=== PATIENT | female | born 1930 | race Caucasian/White ===

== ENCOUNTER 2017-02-23 10:51 | Inpatient (IN) | payer OTHER ==
[~2017-02-23] VITALS: Ht 147.3 cm; Wt 47.7 kg
[~2017-02-23 10:51] MED LIST: AMLO2.5T29 PO; FURO-152 PO; LOSA100T2 PO; METO25XL PO; WARF1 PO
[2017-02-23 11:51] LABS: HEMATOCRIT 29.4 % (36-46); MEAN CORPUSCULAR HEMOGLOBIN 29.9 pg (26.0-34.0); MEAN CORPUSCULAR VOLUME 88 fL (80-100); PLATELET COUNT (AUTO) 129 K/uL (150-450); RED BLOOD CELL COUNT(AUTO) 3.34 MIL/uL (4.00-5.20); RED CELL DISTRIBUTION WIDTH 13.9 % (11.5-14.5)
[2017-02-23 12:06] LABS: APPEARANCE,URINE CLOUDY (CLEAR); BILIRUBIN,URINE PRELIM. POSITIVE (NEGATIVE); GLUCOSE, URINE (UA) NEGATIVE (NEGATIVE); KETONES,URINE TRACE mg/dL (NEGATIVE); LEUKOCYTE ESTERASE ,URINE SMALL (NEGATIVE); NITRATE,URINE POSITIVE (NEGATIVE); OCCULT BLOOD,URINE LARGE (NEGATIVE); PROTEIN,URINE SEE CONFIRM (NEGATIVE)
[2017-02-23 12:07] LABS: RBC,URINE Full Field /HPF (0-2); SULFOSALICYLIC ACID,URINE 3+ (Negative)
[2017-02-23 12:08] LABS: BACTERIA,URINE None Seen /HPF (None Seen)
[2017-02-23 12:19] LABS: CALCIUM, TOTAL 8.6 mg/dL (8.8-10.5); CREATININE 1.24 mg/dL (0.60-1.30)
[2017-02-23 12:26] LABS: ALBUMIN 2.4 g/dL (3.4-5.0); BILIRUBIN,TOTAL 4.9 mg/dL (0.1-1.0)
[2017-02-23 12:28] LABS: BAND NEUTROPHILS % (MANUAL) 4 % (1-5); LYMPHOCYTES % (MANUAL) 16 % (22-44); MONOCYTES % (MANUAL) 15 % (2-9); SEGMENTED NEUTROPHILS % 65 % (40-70)
[2017-02-23] MEDS ORDERED: NITROGLYCERIN 2% (1 GM=INCH) PACKET TP ONE (12:45)
[2017-02-23 13:07] LABS: PROTHROMBIN TIME 184.5 SEC (9.4-11.6)
[2017-02-23 13:11] LABS: INR 17.4 (0.9-1.1)
[2017-02-23] MEDS ORDERED: AZITHROMYCIN 500 MG/NS 250 ML IV ONE (13:15)
[2017-02-23] MEDS ORDERED: CefTRIAXone 1 GM/DEXTROSE 50 ML IV ONE (13:15)
[2017-02-23] MEDS ORDERED: FUROSEMIDE 40 MG/4 ML VIAL IVP ONE (13:15)
[2017-02-23] MEDS ORDERED: PHYTONADIONE 10 MG/1 ML AMP PO ONE (13:30)
[2017-02-23] MEDS ORDERED: 0.9% SODIUM CHLORIDE 10 ML SYRINGE IVP PRN (13:45)
[2017-02-23] MEDS ORDERED: ACETAMINOPHEN 325 MG TABLET PO PRN (13:45)
[2017-02-23 18:14] VITALS: BP 105/58
[2017-02-23 19:45] VITALS: BP 97/67
[2017-02-23] MEDS: METOPROLOL SUCCINATE 25 MG ER TABLET PO SCH (20:15)
[2017-02-23 21:26] LABS: PROTHROMBIN TIME 134.5 SEC (9.4-11.6)
[2017-02-23 21:35] LABS: INR 12.7 (0.9-1.1)
[2017-02-23 23:40] VITALS: BP 123/69
[2017-02-23] MEDS ORDERED: INFLUENZA VIRUS VACCINE QVS 2017-18 (3YR+)/PF 60 MCG/0.5 ML SYRINGE IM ONE (23:45)
[2017-02-24 04:23] VITALS: BP 100/73
[2017-02-24 07:02] LABS: INR 1.7 (0.9-1.1); PROTHROMBIN TIME 17.7 SEC (9.4-11.6)
[2017-02-24 07:10] LABS: HEMATOCRIT 25.5 % (36-46); HEMOGLOBIN 8.4 g/dL (12.0-16.0); MEAN CORPUSCULAR HEMOGLOBIN 29.3 pg (26.0-34.0); MEAN CORPUSCULAR VOLUME 89 fL (80-100); PLATELET COUNT (AUTO) 109 K/uL (150-450); RED BLOOD CELL COUNT(AUTO) 2.87 MIL/uL (4.00-5.20); RED CELL DISTRIBUTION WIDTH 13.9 % (11.5-14.5)
[2017-02-24 07:16] VITALS: BP 108/61
[2017-02-24 07:24] LABS: ALBUMIN 1.9 g/dL (3.4-5.0); BILIRUBIN,TOTAL 3.3 mg/dL (0.1-1.0); CALCIUM, TOTAL 8.1 mg/dL (8.8-10.5); CREATININE 1.28 mg/dL (0.60-1.30); MAGNESIUM 1.8 mg/dL (1.80-2.40); POTASSIUM 3.4 mmol/L (3.5-5.1); TOTAL PROTEIN, SERUM 5.8 g/dL (6.4-8.2)
[2017-02-24] MEDS: METOPROLOL SUCCINATE 25 MG ER TABLET PO SCH ×2 (09:00→19:05)
[2017-02-24 11:27] LABS: LYMPHOCYTES % (MANUAL) 13 % (22-44); MONOCYTES % (MANUAL) 19 % (2-9); SEGMENTED NEUTROPHILS % 68 % (40-70)
[2017-02-24 11:38] VITALS: BP 108/55
[2017-02-24] MEDS: LOSARTAN POTASSIUM 50 MG TABLET PO SCH (13:15)
[2017-02-24] MEDS ORDERED: METOPROLOL SUCCINATE 25 MG ER TABLET PO SCH (13:15)
[2017-02-24] MEDS ORDERED: POTASSIUM CHLORIDE 20 MEQ ER TABLET PO ONE (13:30)
[2017-02-24] MEDS: CefTRIAXone SODIUM 1 GM in DEXTROSE 5%-WATER 10 ML IV SCH (15:19)
[2017-02-24 16:31] VITALS: BP 109/59
[2017-02-24] MEDS ORDERED: WARFARIN SODIUM 1 MG TABLET PO SCH (17:00)
[2017-02-24 19:43] LABS: CALCIUM, TOTAL 8.1 mg/dL (8.8-10.5); CREATININE 1.41 mg/dL (0.60-1.30); MAGNESIUM 1.7 mg/dL (1.80-2.40); POTASSIUM 4.2 mmol/L (3.5-5.1)
[2017-02-24 19:54] VITALS: BP 110/64
[2017-02-25 00:01] VITALS: BP 119/71
[2017-02-25 05:09] VITALS: BP 101/60
[2017-02-25 07:05] LABS: INR 1.3 (0.9-1.1); PROTHROMBIN TIME 13.6 SEC (9.4-11.6)
[2017-02-25 07:14] LABS: HEMATOCRIT 23.9 % (36-46); MEAN CORPUSCULAR HGB CONC 33.5 G/dL (31.0-37.0); MEAN CORPUSCULAR VOLUME 87 fL (80-100); PLATELET COUNT (AUTO) 108 K/uL (150-450); RED BLOOD CELL COUNT(AUTO) 2.76 MIL/uL (4.00-5.20); RED CELL DISTRIBUTION WIDTH 14.1 % (11.5-14.5)
[2017-02-25 07:25] LABS: ALBUMIN 1.9 g/dL (3.4-5.0); BILIRUBIN,TOTAL 2.7 mg/dL (0.1-1.0); CREATININE 1.01 mg/dL (0.60-1.30); MAGNESIUM 1.9 mg/dL (1.80-2.40); POTASSIUM 4.3 mmol/L (3.5-5.1); TOTAL PROTEIN, SERUM 5.7 g/dL (6.4-8.2)
[2017-02-25 07:56] VITALS: BP 107/53
[2017-02-25] MEDS: LOSARTAN POTASSIUM 50 MG TABLET PO SCH (08:32)
[2017-02-25] MEDS: METOPROLOL SUCCINATE 25 MG ER TABLET PO SCH (08:33)
[2017-02-25 10:37] LABS: LYMPHOCYTES % (MANUAL) 14 % (22-44); MONOCYTES % (MANUAL) 21 % (2-9); SEGMENTED NEUTROPHILS % 65 % (40-70)
[2017-02-25 11:17] VITALS: BP 114/68
[2017-02-25] MEDS: CefTRIAXone SODIUM 1 GM in DEXTROSE 5%-WATER 10 ML IV SCH (14:33)
[2017-02-25] MEDS ORDERED: LOSA25TA2 PO (15:12)
[2017-02-25] MEDS ORDERED: APIX2.5T PO (15:15)
[2017-02-25] MEDS ORDERED: SULF1TAB42 PO (15:18)
[2017-02-25 15:57] VITALS: BP 110/60
== END 2017-02-25 17:00 | disposition home or self-care (01) | DRG 291 ==
LOC: EMS 10:53 → 5S 16:51
PROVIDERS: ADMIT Family Medicine; ATTEND Family Medicine
PROC: 3E0234Z Introduction of Serum, Toxoid and Vaccine into Muscle, Percutaneous Approach (ICD-10-PCS; principal; 2017-02-23)
DX: I11.0 Hypertensive heart disease with heart failure (principal); E43 Unspecified severe protein-calorie malnutrition; I48.91 Unspecified atrial fibrillation; D69.6 Thrombocytopenia, unspecified; D64.9 Anemia, unspecified; Z79.01 Long term (current) use of anticoagulants; I50.41 Acute combined systolic (congestive) and diastolic (congestive) heart failure; T45.515A Adverse effect of anticoagulants, initial encounter; K57.90 Diverticulosis of intestine, part unspecified, without perforation or abscess without bleeding; Z90.710 Acquired absence of both cervix and uterus; Z79.899 Other long term (current) drug therapy; Z23 Encounter for immunization
CPT/HCPCS: 51702; 83735; 86850; 86900; 86901; 87040; 90471; 93005; 93306; 96365; 96375; 99291; J0456; J0696; J1940; J3430; J7060

== ENCOUNTER 2017-03-27 10:24 | Emergency (ER) | payer MEDICAID, MEDICARE, OTHER ==
[~2017-03-27] VITALS: Ht 149.9 cm; Wt 48.0 kg
[~2017-03-27 10:24] MED LIST changes: -AMLO2.5T29 PO; -FURO-152 PO; -LOSA100T2 PO; +LOSA50TA37 PO; +METO25 PO; -METO25XL PO; +PANT40TA PO; +PRED20TA3 PO; -WARF1 PO
[2017-03-27 11:42] LABS: BASOPHILS % (AUTO) 0.2 % (0.0-2.0); EOSINOPHILS % (AUTO) 0 % (1.0-6.0); HEMATOCRIT 25.4 % (36-46); HEMOGLOBIN 8.4 g/dL (12.0-16.0); LYMPHOCYTES # (AUTO) 0.4 K/uL (1.0-4.8); LYMPHOCYTES % (AUTO) 4.9 % (22.0-44.0); MEAN CORPUSCULAR HEMOGLOBIN 29.9 pg (26.0-34.0); MEAN CORPUSCULAR HGB CONC 33.3 G/dL (31.0-37.0); MEAN CORPUSCULAR VOLUME 90 fL (80-100); MONOCYTES # (AUTO) 0.6 K/uL (0.1-1.0); MONOCYTES % (AUTO) 8.3 % (2.0-9.0); NEUTROPHILS # (AUTO) 6.7 K/uL (1.8-7.7); RED BLOOD CELL COUNT(AUTO) 2.82 MIL/uL (4.00-5.20); RED CELL DISTRIBUTION WIDTH 19.1 % (11.5-14.5)
[2017-03-27 11:54] LABS: CALCIUM, TOTAL 8.4 mg/dL (8.8-10.5); CREATININE 1.04 mg/dL (0.60-1.30); POTASSIUM 3.5 mmol/L (3.5-5.1)
[2017-03-27 11:57] LABS: NEUTROPHILS % (AUTO) 86.6 % (40.0-70.0); PLATELET COUNT (AUTO) 13 K/uL (150-450)
[2017-03-27 12:00] LABS: TOTAL PROTEIN, SERUM 5.7 g/dL (6.4-8.2)
[2017-03-27 12:15] VITALS: BP 159/87
== END 2017-03-27 12:58 | disposition home or self-care (01) ==
LOC: EMS 10:27
DX: R60.0 Localized edema (principal); E88.09 Other disorders of plasma-protein metabolism, not elsewhere classified; D69.6 Thrombocytopenia, unspecified; E80.6 Other disorders of bilirubin metabolism; I48.91 Unspecified atrial fibrillation; I10 Essential (primary) hypertension
CPT/HCPCS: 93005; 99285

== ENCOUNTER 2017-04-03 00:45 | Inpatient (IN) | payer MEDICARE, OTHER ==
[~2017-04-03] VITALS: Ht 152.4 cm; Wt 49.4 kg
[2017-04-03] VITALS (16 sets, daily range): BP systolic 107–156; BP diastolic 49–98
[2017-04-03] MEDS ORDERED: HYDR-3705 PO (00:53)
[2017-04-03 01:29] LABS: BASOPHILS % (AUTO) 0.9 % (0.0-2.0); EOSINOPHILS % (AUTO) 0 % (1.0-6.0); LYMPHOCYTES # (AUTO) 0.7 K/uL (1.0-4.8); LYMPHOCYTES % (AUTO) 11.3 % (22.0-44.0); MEAN CORPUSCULAR HEMOGLOBIN 29.8 pg (26.0-34.0); MEAN CORPUSCULAR HGB CONC 32.5 G/dL (31.0-37.0); MEAN CORPUSCULAR VOLUME 92 fL (80-100); MONOCYTES # (AUTO) 0.3 K/uL (0.1-1.0); MONOCYTES % (AUTO) 4.7 % (2.0-9.0); NEUTROPHILS # (AUTO) 5.1 K/uL (1.8-7.7); NEUTROPHILS % (AUTO) 83.1 % (40.0-70.0); RED CELL DISTRIBUTION WIDTH 20.9 % (11.5-14.5)
[2017-04-03 01:34] LABS: INR 1.4 (0.9-1.1); PROTHROMBIN TIME 14.9 SEC (9.4-11.6)
[2017-04-03 01:37] LABS: ANION GAP 11 mmol/L (8-16); CARBON DIOXIDE 27 mmol/L (22-29); CHLORIDE 106 mmol/L (98-107); CREATININE 1.27 mg/dL (0.60-1.30); GLOMERULAR FILTR. RATE CALC 40 mL/min (>60); GLUCOSE,RANDOM 137 mg/dL (70-110); HEMATOCRIT 18.3 % (36-46); POTASSIUM 3.8 mmol/L (3.5-5.1); SODIUM SERUM 144 mmol/L (136-145); UREA NITROGEN, BLOOD 34 mg/dL (7-18)
[2017-04-03 01:38] LABS: PLATELET COUNT (AUTO) 15 K/uL (150-450)
[2017-04-03 01:42] LABS: ALANINE AMINOTRANSFERASE 10 U/L (12-78); ALBUMIN 1.5 g/dL (3.4-5.0); ALKALINE PHOSPHATASE 100 U/L (46-116); ASPARTATE AMINOTRANSFERASE 23 U/L (15-37); CREATINE KINASE, TOTAL 15 U/L (26-192); TOTAL PROTEIN, SERUM 4.8 g/dL (6.4-8.2)
[2017-04-03 01:51] LABS: PLATELET MORPHOLOGY COMMENT LARGE PLTS PRESENT
[2017-04-03 02:02] LABS: B-TYPE NATRIURETIC PEPTIDE 586 pg/mL (0-100)
[2017-04-03] MEDS ORDERED: ONDANSETRON HCL 4 MG/2 ML VIAL IVP ONE (02:45)
[2017-04-03] MEDS ORDERED: MORPHINE SULFATE 2 MG/ML SYRINGE IVP ONE (02:45)
[2017-04-03] MEDS ORDERED: 0.9% SODIUM CHLORIDE 10 ML SYRINGE IVP PRN (03:45)
[2017-04-03] MEDS ORDERED: ACETAMINOPHEN 325 MG TABLET PO PRN (03:45)
[2017-04-03] MEDS ORDERED: ONDANSETRON HCL 4 MG/2 ML VIAL IVP PRN (03:45)
[2017-04-03] MEDS ORDERED: SODIUM CHLORIDE 0.9% 250 ML IV ONE (07:26)
[2017-04-03] MEDS ORDERED: LORazepam 2 MG/ML VIAL IVP PRN (16:30)
[2017-04-03] MEDS ORDERED: MORPHINE SULFATE 2 MG/ML SYRINGE IVP PRN (16:30)
[2017-04-03 22:52] LABS: GLUCOSE, URINE (UA) NEGATIVE (NEGATIVE); KETONES,URINE TRACE mg/dL (NEGATIVE); LEUKOCYTE ESTERASE ,URINE MODERATE (NEGATIVE); NITRATE,URINE POSITIVE (NEGATIVE); OCCULT BLOOD,URINE NEGATIVE (NEGATIVE); PH,URINE 5.5 (5.0-8.0); PROTEIN,URINE POS 1+ (NEGATIVE); UROBILINOGEN,URINE >=8.0 mg/dL (<=1.0)
[2017-04-03 22:54] LABS: BILIRUBIN,URINE PRELIM. POSITIVE (NEGATIVE)
[2017-04-03 22:55] LABS: APPEARANCE,URINE SLIGHTLY CLOUDY (CLEAR); RBC,URINE 0-2 /HPF (0-2)
[2017-04-03 22:56] LABS: BACTERIA,URINE Few /HPF (None Seen); FINE GRANULAR CASTS,URINE 0-2 /LPF (None Seen); SQUAMOUS EPITHELIAL CELL,UR Many /LPF (None Seen)
[2017-04-03 22:58] LABS: CALCIUM OXALATE CRYSTALS,UR Rare /LPF (None Seen)
[2017-04-03 23:11] LABS: OTHER CRYSTALS,URINE TYROSINE CRYSTALS 2+ /LPF (None Seen)
[2017-04-04 00:02] VITALS: BP 110/51
[2017-04-04 04:02] VITALS: BP 103/56
[2017-04-04 06:56] VITALS: BP 109/60
[2017-04-04 07:36] VITALS: BP 109/58
== END 2017-04-04 10:15 | disposition home health service (06) | DRG 812 ==
LOC: EMS 00:47 → 5S 09:44
PROVIDERS: ADMIT Family Medicine; ATTEND Family Medicine
PROC: 30233N1 Transfusion of Nonautologous Red Blood Cells into Peripheral Vein, Percutaneous Approach (ICD-10-PCS; principal; 2017-04-03)
DX: D64.9 Anemia, unspecified (principal); C85.90 Non-Hodgkin lymphoma, unspecified, unspecified site; I48.91 Unspecified atrial fibrillation; G89.3 Neoplasm related pain (acute) (chronic); I10 Essential (primary) hypertension; Z51.5 Encounter for palliative care; Z90.710 Acquired absence of both cervix and uterus
CPT/HCPCS: 36430; 86850; 86900; 86901; 86920; 87081; 87086; 93005; 96374; 96375; 96376; 99285; J2270; J2405; J7050; P9016